=== PATIENT | male | born 1965 | race Caucasian/White ===

== ENCOUNTER 2022-10-21 12:37 | Emergency (ER) | payer MEDICARE, SELFPAY ==
--- NOTE | ~2022-10-21 | XR_ITS ---
[[id number] ] INDICATION: Left rib pain after fall TECHNIQUE: Frontal projection of the upper left ribs, frontal projection of the lower left ribs, obli que projection of all the left ribs, frontal inspiratory chest x-ray for interpretation. FINDINGS: There are no displaced rib fractures identified. There are no soft tissue abnormality see n. The lungs are clear. IMPRESSION: 1:No acute displaced rib fractures. Reviewed, dictated and finalized at location B. 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
--- NOTE | ~2022-10-21 | XR_ITS ---
XR hand LT min 3V 10/21/2022 13:37 Indication: Left hand pain Procedure: 3 views left hand Comparison: No prior studies for comparison. Findings: There is polyarticular osteoarthritis. No acute fracture, subluxation or dislocation. No fo rossy soft tissue abnormality. No foreign bodies. Impression: 1: No acute fracture. Reviewed, dictated and finalized at location B. [employer] Impression: 1: No acute fracture.
[2022-10-21 12:50] VITALS: BP 162/79; PULSE 62; RESP 20; TEMP 36.9; O2SAT 99
--- NOTE | 2022-10-21 13:04 | ED.FALL ---
HPI - Fall General Chief Complaint: Fall Stated Complaint: Fall Injury/Left Hand/Rib Pain Source: patient and RN notes reviewed History of Present Illness HPI Narrative: 57-year-old male presents to urgent care after falling approximately 30 minutes prior to arrival. Patient states he was walking his dog when the dog took off after a squirrel causing the patient to fall forward. Patient states he landed on his left hand, bilateral knees, left anterior ribs, and left cheek. Patient denies any LOC. Denies any neck pain, chest pain, shortness of breath, or abdominal pain. Some parts of this dictation were generated by voice recognition software and may contain typographical and/or grammatical inaccuracies. Related Data Allergies Allergy/AdvReac Type Severity Reaction Status Date / Time ustekinumab [From Stelara] Allergy Unknown Verified 10/21/22 14:25 Review of Systems Review of Systems: CONSTITUTIONAL: Denies fever, chills, or sweats. EYES: Denies visual changes, redness, or discharge. ENT: Denies otalgia and sore throat CARDIOVASCULAR: Denies chest pain, palpitations, or edema. RESPIRATORY: Reports pain in his ribs with deep inhalation GASTROINTESTINAL: Denies abdominal pain, nausea, vomiting, or diarrhea. GENITOURINARY: Denies dysuria or hematuria. SKIN: Denies rash or itching. MUSCULOSKELETAL: Reports left hand pain, left lower, anterior, rib pain NEUROLOGIC: Denies headache, numbness, or weakness. PMFSH Comments At the time of my signature, I reviewed and agree with the nursing past medical, surgical, social, and family history. There is no relevant family history pertinent to the patient complaint. Exam Narrative: GENERAL: This is a well-nourished, well-developed patient, in no apparent distress. HEAD: normocephalic, atraumatic. EYES: PERRL. Sclera clear/white. Vision is grossly intact. EARS: External ears normal, auditory canals clear and without drainage, TMs normal without perforation. Hearing grossly intact. NOSE: External nose normal with no obvious nasal discharge, nares without redness, no rhinorrhea. THROAT: Mucous membranes moist, posterior pharynx clear. NECK: Neck supple, non-tender without lymphadenopathy, masses or thyromegaly. CARDIOVASCULAR: Regular rate and rhythm without murmurs, gallops, or rubs. RESPIRATORY: Clear to auscultation. Breath sounds equal bilaterally. No wheezes, rales, or rhonchi. GASTROINTESTINAL: Abdomen soft, non-tender, nondistended. Bowel sounds are active. No hepato-splenomegaly, or palpable masses. No guarding. SKIN: Abrasions noted to bilateral knees. NEURO: awake, alert, and oriented to person, place and time. There were no obvious focal neurologic abnormalities. EXTREMITIES: Left hand noted to be tender and swollen, mostly a along the ulnar side. Left lateral and anterior lower rib tenderness Course Course Level of Care: Express Care Visit Vital Signs Vital signs: Vital Signs Temperature 98.5 F 10/21/22 12:50 Pulse Rate 62 10/21/22 12:50 Respiratory Rate 20 10/21/22 12:50 Blood Pressure 162/79 H 10/21/22 12:50 Pulse Oximetry 99 10/21/22 12:50 Oxygen Delivery Room Air 10/21/22 12:50 Temperature 98.5 F 10/21/22 12:50 Pulse Rate 62 10/21/22 12:50 Respiratory Rate 20 10/21/22 12:50 Blood Pressure 162/79 H 10/21/22 12:50 Pulse Oximetry 99 10/21/22 12:50 Oxygen Delivery Room Air 10/21/22 12:50 Reviewed MDM - Fall MDM Narrative Medical decision making narrative: Use the rice method at home. Talk to your liver DrSenait before taking Tylenol. Go to emergency department with any new or worsening symptoms. Take 10 deep breaths every hour on the hour while awake to help prevent pneumonia. Differential Diagnosis Differential diagnosis: Likely other (Hand fracture, contusion, abrasions, rib fracture, rib contusion, pneumothorax) Critical Care Time Critical Care Time Critical Care Time: No Discharge Plan Discharge Clinical Impre
== END 2022-10-21 14:31 | disposition home or self-care (01) ==
PROVIDERS: Emergency Provider Nurse Practitioner Family; PCP Internal Medicine
DX: S20.212A Contusion of left front wall of thorax, initial encounter (principal); S60.222A Contusion of left hand, initial encounter; W18.39XA Other fall on same level, initial encounter
CPT/HCPCS: 71101; 73130; 99214; G0463